=== PATIENT | female | born 1990 | race Caucasian/White ===

== ENCOUNTER 2018-04-09 02:51 | Emergency (ER) | payer SELFPAY ==
[2018-04-09] MEDS ORDERED: NS 0.9% 1000 ML* 1,000 ML IV ONE (02:54)
[2018-04-09] MEDS ORDERED: Tetan/Diph/Pertus SYR(Tdap)* 0.5 ML SYR(BOOSTRIX) use SYR IM ONE (03:26)
[2018-04-09] MEDS ORDERED: Ketorolac INJ* 30 MG/ML 1 ML VIAL IV PUSH ONE (03:26)
[2018-04-09 03:31] LABS: ABS Basophils 0.1 10^3/ul (0-0.2); ABS Eosinophils 0.2 10^3/ul (0-0.6); ABS Lymphocytes 1.7 10^3/ul (1.0-4.8); ABS Monocytes 0.7 10^3/ul (0-0.8); ABS Neutrophils 5.9 10^3/ul (1.5-7.7); ABS Nucleated RBC 0 10^3/ul; Eosinophil % 2.5 % (0-6); Hematocrit 39 % (35-47); Hemoglobin 13.2 g/dl (12.0-16.0); Lymphocyte % 19.9 % (25-47); Mean Corpuscular HGB Conc 34 g/dl (31-36); Mean Corpuscular Hemoglobin 30 pg (27-31); Mean Corpuscular Volume 88 fL (80-97); Mean Platelet Volume 9.2 um3 (7.4-10.4); Nucleated Red Blood Cells % 0; Platelet Count 204 10^3/ul (150-450); Red Blood Count 4.41 10^6/ul (4.00-5.40); Red Cell Distribution Width 14 % (10.5-15); White Blood Count 8.5 10^3/ul (3.5-10.8)
[2018-04-09 03:43] LABS: EGFR Non-African American 99.5 (>60)
[2018-04-09] MEDS ORDERED: Iohexol 300* (CONTRAST) 10 ML SDV IV ONE (03:47)
[2018-04-09 04:07] LABS: INR 1.01 (0.77-1.02)
[2018-04-09 05:08] VITALS: BP 119/71
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
== END 2018-04-09 05:53 | disposition home or self-care (01) ==
LOC: ED 02:51
DX: S60.212A Contusion of left wrist, initial encounter (principal); V48.0XXA Car driver injured in noncollision transport accident in nontraffic accident, initial encounter; Y92.9 Unspecified place or not applicable; Z23 Encounter for immunization
CPT/HCPCS: 36415; 71046; 72040; 74177; 80053; 83605; 84702; 85025; 85610; 90471; 90715; 96361; 96374; 99284; J1885; Q9967

== ENCOUNTER 2018-07-16 10:23 | Emergency (ER) | payer MEDICAID, OTHER ==
[2018-07-16] MEDS ORDERED: Naproxen TAB* 250 MG PO ONE (10:52)
--- NOTE | 2018-07-16 10:54 | ED ---
Lower Extremity - HPI Summary HPI Summary: Patient is a 28 y/o F w/ c/o left knee pain after a fall yesterday. She states she tripped over her daughters toy and that her ankle went one way, knee the other. She struck her left knee against the floor, heard a popping or cracking sound. No LOC was experienced. Initially, patient was able to hobble around and left knee felt hot. Pain has increased since onset. She reports that she has been experiencing some soreness/pressure and throbbing in the left knee as well. Numbness/tingling in the knee is denied. When patient woke up this morning, she reports she was having difficulty bearing weight. 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 On triage, pain is rated 8/10, walking and movement are noted to aggravate pain, nothing is reported to alleviate Sx. Vaccines are UTD. LNMP was three weeks ago. Movement is noted to aggravate pain. Home medications and allergies are reviewed. PMHx is denied. FMHx of maternal gradmother lung cancer is denied. LNMP was three weeks ago. - History of Current Complaint Chief Complaint: EDExtremityLower Stated Complaint: LT KNEE INJURY Time Seen by Provider: 07/16/18 10:34 Hx Obtained From: Patient Mechanism Of Injury: Blunt Trauma, Direct Blow, Fall From A Standing Position - tripped, fell, struck left knee against floor Onset of Pain: Days - onset yesterday, Prior to Arrival Onset/Duration: Worse Since Severity Initially: Moderate Severity Currently: Severe - 8/10 Pain Intensity: 8 Pain Scale Used: 0-10 Numeric - 8/10 Timing: Constant, Lasting Days Location: Is Discrete @ - left knee Character Of Pain: Throbbing Associated Signs And Symptoms: Positive: Knee Pain - left Aggravating Factor(s): Ambulation, Movement Alleviating Factor(s): Nothing - Allergies/Home Medications Allergies/Adverse Reactions: Allergies Allergy/AdvReac Type Severity Reaction Status Date / Time No Known Allergies Allergy Verified 07/16/18 10:42 PMH/Surg Hx/FS Hx/Imm Hx Endocrine/Hematology History: Denies: Hx Diabetes Cardiovascular History: Denies: Hx Hypertension, Hx Syncope Respiratory History: Denies: Hx Chronic Obstructive Pulmonary Disease (COPD), Hx Cystic Fibrosis GI History: Denies: Hx Gastroesophageal Reflux Disease, Hx Irritable Bowel History: Denies: Hx Renal Disease Musculoskeletal History: Denies: Hx Fibromyalgia Sensory History: Denies: Hx Eye Injury Opthamlomology History: Denies: Hx Eye Injury Psychiatric History: Denies: Hx Schizophrenia Infectious Disease History: No Infectious Disease History: Denies: Traveled Outside the [place] in Last 30 Days - Family History Known Family History: Positive: Diabetes, Respiratory Disease - maternal grandmother had lung cancer - Social History Alcohol Use: None Hx Substance Use: No Substance Use Type: Reports: None Hx Tobacco Use: No Smoking Status (MU): Never Smoked Tobacco Review of Systems Positive: Other - left knee pain Negative: Numbness, Syncope All Other Systems Reviewed And Are Negative: Yes Physical Exam - Summary Physical Exam Summary: Appearance: Well appearing, no pain distress Skin: warm, dry, reflects adequate perfusion Head/face: normal Eyes: EOMI, WARREN ENT: mucous membranes moist Neck: supple, non-tender Respiratory: CTA, breath sounds present Cardiovascular: RRR, pulses symmetrical Abdomen: non-tender, soft Bowel Sounds: present Musculoskeletal: strength/ROM intact; small effusion and tenderness at left medial joint line. Neuro: normal, sensory motor intact, A&Ox3 Triage Information Reviewed: Yes Vital Signs On Initial Exam: Initial Vitals Temp Pulse Resp BP Pulse Ox 97.4 F 61 16 120/86 98 07/16/18 10:40 07/16/18 10:40 07/16/18 10:40 07/16/18 10:40 07/16/18 10:40 Vital Signs Reviewed: Yes Diagnostics - Vital Signs Vital Signs Temp Pulse Resp BP Pulse Ox 07/16/18 10:40 97.4 F 61 16 120/86 98 - Laboratory Lab Statement: Any lab studies that have been ordered have been reviewed, and results considered in the medical decision making process. - Radiology left knee x-ray Xray Interpretation: No Acute Changes Radiology Interpretation Completed By: Radiologist - negative radiographic exam of the left knee; this report was reviewed by ED physician. Lower Extremity Course/Dx - Course Course Of Treatment: X-rays negative. Medial joint line pain. No crepitance. Likely MCL injury, uncertain of degree. Placed an Harsh wrap, knee immobilizer and given crutches. Follow-up with orthopedic surgeon. - Diagnoses Differential Diagnosis/HQI/PQRI: Positive: Sprain, Strain Provider Diagnoses: Left knee pain Discharge - Sign-Out/Discharge Documenting (check all that apply): Patient Departure - discharge - Discharge Plan Condition: Stable Disposition: HOME Prescriptions: Naproxen [Naproxen 500 mg tab] 500 mg PO BID PRN #12 tablet.dr HERNANDEZ Reason: Pain Patient Education Materials: Knee Sprain (ED) Forms: *Work Release Referrals: [facility] [Outside] [facility] [Outside] Tanesha Rodrigez MD [Medical Doctor] - Additional Instructions: Ice, elevate it rest, ibuprofen or Aleve for discomfort. Knee immobilizer when active. Remove this and moved here knee through range of motion every hour. Use an Harsh wrap for stability. Return if worse, new symptoms or other concerns. Follow up with orthopedist. - Billing Disposition and Condition Condition: STABLE Disposition: Home - Attestation Statements Document Initiated by Scribe: Yes Documenting Scribe: Ricardo Eric Provider For Whom Scribe is Documenting (Include Credential): Angus Dejesus MD Scribe Attestation: IRicardo, scribed for Angus Dejesus MD on 07/16/18 at 1217. Scribe Documentation Reviewed: Yes Provider Attestation: The documentation as recorded by the Ricardo jackson accurately reflects the service I personally performed and the decisions made by , Angus Dejesus MD
--- NOTE | 2018-07-16 11:35 | RAD ---
Indication: LEFT knee pain and limitation in weightbearing following twisting injury yesterday. Comparison: No relevant prior exams available on the [facility] PACS for comparison. Technique: LEFT knee: AP, tunnel, lateral, sunrise views. Report: Negative for joint effusion, fracture, or malalignment. Preserved joint spaces. Unremarkable soft tissue contours. IMPRESSION: #. Negative radiographic exam of the LEFT knee.
[2018-07-16 11:51] VITALS: BP 115/63
== END 2018-07-16 11:51 | disposition home or self-care (01) ==
LOC: ED 10:23
DX: M25.562 Pain in left knee (principal); Z91.81 History of falling
CPT/HCPCS: 99282; A9270-GY

== ENCOUNTER 2019-10-17 00:56 | Inpatient (IN) | payer OTHER ==
[2019-10-17] MEDS ORDERED: Buffered Lidocaine 1% SYRIN* 1 ML/SYRINGE INTRADERM ONE (01:26)
[2019-10-17] MEDS ORDERED: Lactated Ringers 1000 ML Bag* 1,000 ML IV ONE ×2 (01:26→03:22)
--- NOTE | 2019-10-17 01:35 | HP ---
General Information - Reason for Visit Contractions - General Information Maternal Age: 29 Grav: 2 Para: 1 SAB: 0 IEA: 0 Estimated Due Date: 10/17/19 Determined By: Early Ultrasound Gestational Age in Weeks/Days: 40 0/7 Maternal Blood Type and Rh: O Negative - Results this Serology/RPR Result: Non-Reactive Rubella Result: Immune HBsAg Result: Negative HIV Result: Negative GBS Culture Result: Negative Past Medical History Delivery History: Hx Uncomplicated Vaginal Delivery Pertinent Past Medical History: Non-Contributory Pertinent Past Surgical History: None Pertinent Family History: Non-Contributory - Antepartal Records Antepartal Records: Reviewed, Complicated by: - Rh negative status Review of Systems Constitutional: Uncomfortable CV Complaint: No Respiratory: Shortness of Breath: No Gastrointestinal: No Nausea/Vomiting, Normal Bowel Movement Genitourinary: No Dysuria, No Bleeding, No Leaking Fluid Musculoskeletal: No Epigastric Pain, Contractions Neurological: No Headache, No Visual Changes Movement: Normal Exam Allergies/Adverse Reactions: Allergies No Known Allergies Allergy (Verified 07/16/18 10:42) B/P: 118/72, P: 80, R: 20, T: 97.8 - Measurements Height: 5 ft 5 in Weight: 234 lb Weight in lbs: [phone] Body Mass Index (BMI): 38.9 Pre- Weight: 211 lb Weight Gained This : 23 lbs and 0 ozs - Exam Breast: Breast Exam Deferred CVA: No CVA Tenderness Extremities: No Edema Heart: Normal Rhythm/Heart Sounds HEENT: No Significant Findings Lungs: Clear Bilaterally Reflexes: DTR 2+ Thyroid: No Thyromegaly Targeted Exam Findings Cervical Exam: 5cm, 6cm Effacement: 80% Station: -1 Presenting Part: Vertex Membrane Status: Intact Bleeding/Discharge: None EFM Findings - External Monitor Findings Baseline Heart Rate: 125 External Monitor Findings: Accelerations Present, No Pattern of Variable or Late Decelerations, Variability Moderate, Baseline Stable Contractions: Regular - to palpation. UCs not tracing well on [place] with maternal position changes, Moderate, 45-90 Seconds Assessment/Plan - Assessment A: IUP at 40 0/7 weeks Category I FHR, no evidence of metabolic acidemia Active labor GBS negative P: Admit to inpatient Pt requesting epidural for pain relief, will start IV and draw labs Reassess PRN Anticipate SVB - Plan Plan: Admit - Anticipate Vaginal Delivery - Date/Time of Admission Date of Admission: 10/17/19 Time of Admission: 01:30
[2019-10-17] MEDS ORDERED: Lactated Ringers 1000 ML Bag* 1,000 ML IV SCH ×3 (02:00→07:00)
[2019-10-17 02:02] LABS: ABS Basophils 0.1 10^3/ul (0-0.2); ABS Eosinophils 0.2 10^3/ul (0-0.6); ABS Lymphocytes 2.2 10^3/ul (1.0-4.8); ABS Monocytes 0.8 10^3/ul (0-0.8); ABS Neutrophils 10.4 10^3/ul (1.5-7.7); Eosinophil % 1.3 %; Hematocrit 35 % (35-47); Hemoglobin 12.2 g/dL (12.0-16.0); Lymphocyte % 16.3 %; Mean Corpuscular HGB Conc 35 g/dL (31-36); Mean Corpuscular Hemoglobin 32 pg (27-31); Mean Corpuscular Volume 92 fL (80-97); Nucleated Red Blood Cells % 0.1; Platelet Count 189 10^3/uL (150-450); Red Cell Distribution Width 14 % (10-15); White Blood Count 13.7 10^3/uL (3.5-10.8)
[2019-10-17 02:21] LABS: Urine Benzodiazepine Screen None Detected (None Detect); Urine Opiates Screen None Detected (None Detect)
[2019-10-17] MEDS ORDERED: OBEPIDURAL* 250 ML EPIDURAL ONE (02:21)
[2019-10-17] MEDS ORDERED: Sodium Citrate/Citric Acid* 15 ML UDC PO PRN (03:22)
[2019-10-17] MEDS ORDERED: Famotidine TAB* 20 MG PO PRN (03:22)
[2019-10-17] MEDS ORDERED: Phenylephrine 40 MCG/ML SYRINGE IV PUSH PRN (03:22)
[2019-10-17] MEDS ORDERED: OBEPIDURAL* 250 ML EPIDURAL SCH (04:00)
[2019-10-17] MEDS ORDERED: Glycerin ADULT SUPP PR PRN (06:37)
[2019-10-17] MEDS ORDERED: Witch Hazel PAD* JAR TOPICAL PRN (06:37)
[2019-10-17] MEDS ORDERED: RHO D Immune Globulin (HUMAN)* 300 MCG = 1,500 I.U. INJ IM ONE (06:37)
[2019-10-17] MEDS ORDERED: Dibucaine 1% 28.35 GM TUBE PR PRN (06:37)
--- NOTE | 2019-10-17 06:47 | PROCNOTE ---
[facility] OB: Delivery Note - Delivery A Date of : 10/17/19 Time of : 06:20 [place] Sex: Female Score 1 Minute: 9 Score 5 Minutes: 9 Gestational Age in Weeks and Days at Delivery: 40 Weeks and 0 Days Delivery Method: Spontaneous Vaginal Labor: Spontaneous Did Patient attempt ?: N/A, No Previous Amniotic Fluid: Clear Estimated Blood Loss: 250 Anesthesia/Analgesia: CEI for Labor Anesthesia Comment: Dr. Tobias Delivered By: Ashley Zuñiga - Nursery Level of Nursery: Regular/Bedside - Perineum Perineal Injury: None/Intact Perineal Repair: None - Events Delivery Events of Note: None Apply - Additional Delivery Notes Additional Delivery Notes: at 40 0/7 weeks in spontaneous labor received CEI for pain relief per preference. She experienced SROM to clear fluid at 0552, found to be complete and complete. Began pushing at 0610 with good maternal effort. Slow controlled delivery of head OA to BRUNO at 0620, shoulders followed without difficulty. to maternal abdomen, spontaneous cry, HR >110. Apgars 9 and 9. 3VC was doubly clamped and cut by infants father after pulsations ceased. Spontaneous jany placenta delivered at 0629, fundus firm with massage. Perineum and vagina carefully inspected, found to be intact. EBL = 250 cc. Mother and infant stable at time of note, feeding plan is breast.
[2019-10-17] MEDS ORDERED: Simethicone TAB* 80 MG TAB.CHEW PO SCH (08:30)
[2019-10-17] MEDS: Ibuprofen TAB* 600 MG PO SCH ×3 (13:00→20:35)
[2019-10-17] MEDS: Docusate CAP* 100 MG PO SCH ×3 (14:00→20:36)
[2019-10-17] MEDS: Acetaminophen TAB* 325 MG PO PRN ×2 (16:57→22:42)
[2019-10-18] MEDS: Ibuprofen TAB* 600 MG PO SCH ×4 (01:00→16:25)
[2019-10-18 05:44] LABS: ABS Basophils 0.1 10^3/ul (0-0.2); ABS Eosinophils 0.2 10^3/ul (0-0.6); ABS Lymphocytes 2.2 10^3/ul (1.0-4.8); ABS Monocytes 0.5 10^3/ul (0-0.8); ABS Neutrophils 6.7 10^3/ul (1.5-7.7); Eosinophil % 2.3 %; Hematocrit 30 % (35-47); Hemoglobin 10.5 g/dL (12.0-16.0); Lymphocyte % 22.7 %; Mean Corpuscular HGB Conc 35 g/dL (31-36); Mean Corpuscular Hemoglobin 33 pg (27-31); Mean Corpuscular Volume 93 fL (80-97); Mean Platelet Volume 8.9 fL (7.4-10.4); Nucleated Red Blood Cells % 0.1; Platelet Count 145 10^3/uL (150-450); Red Blood Count 3.23 10^6 /uL (3.70-4.87); Red Cell Distribution Width 14 % (10-15); White Blood Count 9.6 10^3/uL (3.5-10.8)
[2019-10-18] MEDS ORDERED: Ferrous Gluconate TAB* 324 MG TAB PO SCH (09:00)
[2019-10-18 09:05] VITALS: BP 116/71
[2019-10-18] MEDS: Docusate CAP* 100 MG PO SCH ×2 (13:53→16:26)
== END 2019-10-18 19:20 | disposition home or self-care (01) | DRG 560 ==
LOC: MCHOBOUT 00:56 → MCHOB 01:22
PROVIDERS: ADMIT Midwife; ATTEND Midwife
PROC: 10E0XZZ Delivery of Products of Conception, External Approach (ICD-10-PCS; principal; 2019-10-17)
PROC: 4A1HXCZ Monitoring of Products of Conception, Cardiac Rate, External Approach (ICD-10-PCS; 2019-10-17)
PROC: 3E0234Z Introduction of Serum, Toxoid and Vaccine into Muscle, Percutaneous Approach (ICD-10-PCS; 2019-10-17)
DX: O26.893 Other specified pregnancy related conditions, third trimester (principal); Z37.0 Single live birth; Z3A.40 40 weeks gestation of pregnancy; Z67.41 Type O blood, Rh negative; Z28.21 Immunization not carried out because of patient refusal
CPT/HCPCS: 36415; 80307; 85025; 86850; 86900; 86901; A9270-GY

== ENCOUNTER 2024-01-27 04:37 | Observation (INO) ==
[2024-01-27 05:29] LABS: ABS Basophils 0.1 10^3/uL (0.0-0.1); ABS Eosinophils 0.2 10^3/uL (0.0-0.5); ABS Lymphocytes 1.2 10^3/uL (1.0-4.8); ABS Monocytes 1.2 10^3/uL (0.0-0.9); Eosinophil % 0.9 %; Hematocrit 36.8 % (35-45); Hemoglobin 12.7 g/dL (11.5-14.3); Lymphocyte % 6.1 %; Mean Corpuscular Hemoglobin 30.1 pg (27-33); Mean Corpuscular Hgb Conc 34.5 g/dL (31-36); Mean Corpuscular Volume 87.2 fL (80-97); Mean Platelet Volume 8.5 fL (7.5-11.2); Platelet Count 287 10^3/uL (150-450); Red Blood Count 4.22 10^6/uL (3.63-4.92); Red Cell Distribution Width 13.6 % (12-17); White Blood Count 19.6 10^3/uL (3.8-11.8)
[2024-01-27] MEDS: Vancomycin 1,500 MG in NS 0.9% 250 ml 250 ML IVPB ONE (05:38)
[2024-01-27] MEDS: cefTRIAXone 1 gm/50 mL D5W 1 GM/50 ML BAG IV ONE (05:38)
[2024-01-27 05:39] LABS: Activated Partial Thrombo Time 31.9 seconds (26.0-38.0); INR 1.05 (0.83-1.13)
[2024-01-27] MEDS: Lactated Ringers SEPSIS* BAG 1,710 ML IV ONE (05:41)
[2024-01-27] MEDS: Acetaminophen IV 1 GM/100ML 1,000 MG/100 ML BAG IV ONE (05:47)
[2024-01-27] MEDS: Morphine 4 MG/ML VIAL (1 ml) IV ONE (05:48)
[2024-01-27] MEDS: Ondansetron 4 mg VIAL 2 MG/ML 2 ml VIAL IV ONE (05:48)
[2024-01-27] MEDS: Clindamycin 900 MG/D5W BAG 900 MG/50 ML BAG IVPB ONE (05:56)
[2024-01-27 06:08] LABS: Albumin 4.2 g/dL (3.2-5.2); Albumin/Globulin Ratio 1.3 (1-3); C Reactive Protein 200.41 mg/L (<8.01); Creatinine, Serum 0.81 mg/dL (0.51-0.95); Globulin 3.3 g/dL (2-4); Potassium 3.7 mmol/L (3.5-5.0); Total Bilirubin 0.5 mg/dL (0.2-1.0); Total Protein 7.5 g/dL (6.4-8.9); eGFR CKD-EPI 99.5 (>60)
[2024-01-27] MEDS: Iohexol 350 (CONTRAST) 500 ML MDV IV ONE (06:57)
[2024-01-27 07:45] LABS: High Sensitivity Troponin 1 Hr 3 pg/mL (<15)
[2024-01-27 08:47] LABS: Urine Specific Gravity > 1.060 (1.002-1.030)
[2024-01-27 08:48] LABS: Urine Appearance Clear; Urine Bacteria Absent /HPF (Absent); Urine Bilirubin Negative (Negative); Urine Blood Negative (Negative); Urine Color Yellow; Urine Glucose Negative (Negative); Urine Ketones Negative (Negative); Urine Nitrite Negative (Negative); Urine Protein 1+ (>=30 mg/dL) (Negative); Urine Red Blood Cell Absent /HPF (0-Trace); Urine Squamous Epithelial Cell Present /HPF (Absent); Urine Urobilinogen 1+ (Negative); Urine White Blood Cell Absent /HPF (0-Trace)
[2024-01-27] MEDS ORDERED: Vancomycin per Pharmacy 1 EA NOTE FOLLOW UP PRN (11:51)
[2024-01-27] MEDS ORDERED: Vancomycin 1,500 MG in NS 0.9% 250 ml 250 ML IVPB SCH (12:00)
[2024-01-27] MEDS: Vancomycin 1000 MG in NS 0.9% 250 ML IVPB SCH (13:44)
[2024-01-27] MEDS: Enoxaparin 40 MG/0.4 ML SYR SUBCUT SCH (20:15)
[2024-01-28] MEDS: Ondansetron 4 mg VIAL 2 MG/ML 2 ml VIAL IV PRN (04:56)
[2024-01-28 05:51] LABS: ABS Basophils 0.1 10^3/uL (0.0-0.1); ABS Eosinophils 0.3 10^3/uL (0.0-0.5); ABS Monocytes 0.9 10^3/uL (0.0-0.9); ABS Neutrophils 9.5 10^3/uL (1.5-7.6); Eosinophil % 2.1 %; Hematocrit 30.9 % (35-45); Hemoglobin 10.6 g/dL (11.5-14.3); Mean Corpuscular Hemoglobin 29.7 pg (27-33); Mean Corpuscular Hgb Conc 34.3 g/dL (31-36); Mean Corpuscular Volume 86.8 fL (80-97); Mean Platelet Volume 8.7 fL (7.5-11.2); Platelet Count 227 10^3/uL (150-450); Red Blood Count 3.56 10^6/uL (3.63-4.92); Red Cell Distribution Width 13.3 % (12-17); White Blood Count 12.8 10^3/uL (3.8-11.8)
[2024-01-28 06:39] LABS: C Reactive Protein 134.37 mg/L (<8.01); Calcium 8.2 mg/dL (8.6-10.3); Creatinine, Serum 0.64 mg/dL (0.51-0.95); Potassium 3.9 mmol/L (3.5-5.0); eGFR CKD-EPI 121.1 (>60)
[2024-01-28] MEDS: Vancomycin Trough Check NOTE FOLLOW UP ONE (13:45)
[2024-01-28] MEDS: Vancomycin 1000 MG in NS 0.9% 250 ML IVPB SCH (19:50)
[2024-01-29 08:03] LABS: ABS Basophils 0.1 10^3/uL (0.0-0.1); ABS Eosinophils 0.3 10^3/uL (0.0-0.5); ABS Lymphocytes 2.2 10^3/uL (1.0-4.8); ABS Monocytes 0.5 10^3/uL (0.0-0.9); ABS Neutrophils 5.9 10^3/uL (1.5-7.6); Hemoglobin 10.6 g/dL (11.5-14.3); Lymphocyte % 24.8 %; Mean Corpuscular Hgb Conc 34.4 g/dL (31-36); Mean Corpuscular Volume 87.2 fL (80-97); Mean Platelet Volume 9.2 fL (7.5-11.2); Platelet Count 240 10^3/uL (150-450); Red Blood Count 3.55 10^6/uL (3.63-4.92); Red Cell Distribution Width 13.1 % (12-17); White Blood Count 9.1 10^3/uL (3.8-11.8)
[2024-01-29 10:52] VITALS: BP 125/71
[2024-01-29] MEDS ORDERED: Vancomycin Random Level NOTE FOLLOW UP ONE (13:30)
== END 2024-01-29 13:25 | disposition home or self-care (01) ==
LOC: EDHOLD 04:37 → ED 04:37 → SUATTDRO 11:11 → SSU 11:57
PROVIDERS: ADMIT Internal Medicine; ATTEND Student in an Organized Health Care Education/Training Program